=== PATIENT | female | born 1950 | race Caucasian/White ===

== ENCOUNTER → 2020-05-26 10:03 | Outpatient (CLI) | payer MEDICARE, BC, SELFPAY ==
[2020-05-28 18:36] LABS: COVID19 Sendout Not Detected (Not Detected)
== END ==
PROVIDERS: Visit Provider Physician Assistant
DX: Z11.59 Encounter for screening for other viral diseases (principal)
CPT/HCPCS: 87635

== ENCOUNTER 2020-05-29 11:28 | Day surgery (SDC) | payer MEDICARE, BC, SELFPAY ==
--- NOTE | 2020-05-29 | PATH_ITS ---
[facility] Accession Number: [id number] . 01 Material submitted: . colon - CECAL POLYP . 02 Diagnosis: Cecum, Polyp: Sessile serrated adenoma. V 05/31/2020 1242 Local . 02 Electronically signed: . Daniel Pyle MD, PhD, Pathologist NPI- [id number] . 01 Gross description: . Received in formalin, labeled cecal polyp, are four salomon-pink fragments of soft tissue measuring 1.0 x 1.0 x 0.2 cm in aggregate. The specimen is entirely submitted in cassette A1. ([id number]) /V 05/30/2020 1043 Local . 02 Pathologist provided ICD-10: D12.0 . 02 CPT . 233493 Performed at: 01 [facility] [address] [id number] MD Manny Craft MD Phone: [phone] Performed at: 02 [facility] [id number] [place] [id number] MD Faith Forrester MD Phone: [phone]
[2020-05-29 12:00] VITALS: BP 123/73; PULSE 78; RESP 16; TEMP 36.5; O2SAT 100; BMI 20.4
[2020-05-29] MEDS: SODIUM CHLORIDE 0.9% 1,000 ML 70 ML IV (12:00)
--- NOTE | 2020-05-29 13:13 | PM.HP.1 ---
History of Present Illness History of Present Illness Date Patient Seen: 05/29/20 Time Patient Seen: 13:13 Chief complaint: SCREENING COLONOSCOPY W/POSS BX Narrative: Patient is a 69 year old female who presented for colonoscopy. History of advanced adenoma in the ascending colon (SSA) 01/13/2017. - Patient History Medical History (Updated 05/29/20 @ 13:16 by Guillermina Bhagat DO) Cataract (Acute) Surgical History S/P thyroidectomy (Acute) Family & Social History Social History: household members spouse Tobacco & Substance use: Smoking Status Never smoker alcohol intake current alcohol intake frequency 0-2 drinks per day Substance Use Type does not use Meds Home Medications and Allergies Home Medications Medication Instructions Recorded Confirmed Type brinzolamide [Azopt] 1 drp EYE-LEFT BID 05/29/20 05/29/20 History cholecalciferol (vitamin D3) 50 mcg PO DAILY 05/29/20 05/29/20 History [Vitamin D3] levothyroxine 1 mcg PO DAILY 05/29/20 05/29/20 History Allergies Allergy/AdvReac Type Severity Reaction Status Date / Time amoxicillin AdvReac ITCHING Verified 05/29/20 11:44 Review of Systems Review of Systems ROS: Yes All systems reviewed with the patient and are negative except as otherwise documented Exam Vital Signs (past 8 hours): - 05/29/20 12:00 Temperature 97.7 F Pulse Rate 78 Respiratory Rate 16 Blood Pressure 123/73 Pulse Oximetry 100 Oxygen Delivery Method Room Air Const General: cooperative, healthy appearing, comfortable, well developed and well groomed Nutritional Appearance: average body habitus [facility] Head: normocephalic and atraumatic Resp Effort & Inspection: normal respiratory effort, able to speak in complete sentences and abnormal respiratory pattern Auscultation: clear to auscultation bilaterally Cardio Rate: regular rate Rhythm: regular rhythm Heart Sounds: S1 normal and S2 normal GI Palpation: soft Auscultation: normal bowel sounds Neuro Cognition: normal cognition Speech: speech normal Extrem Right lower extremity: no edema Left lower extremity: no edema Assessment & Plan Assessment and plan (1) History of colon polyps: Problem details: 1. History of colon polyps - Advanced adenoma in the ascending colon - Colonoscopy today, further recommendations to follow Status: Acute
[2020-05-29] MEDS: ONDANSETRON 4 MG/2 ML INJ IV (14:08)
[2020-05-29] MEDS: MIDAZOLAM 5 MG/5 ML VIAL IV (14:15)
[2020-05-29] MEDS: fentaNYL 250 MCG/5 ML INJ IV (14:18)
[2020-05-29 14:42] VITALS: BP 117/6; PULSE 88; RESP 13; TEMP 36.1; O2SAT 99
--- NOTE | 2020-05-29 14:43 | PM.OP.ENDO ---
Operative Date/Time/Diagnoses Date of procedure: 05/29/20 Time of procedure: 14:10 Procedure Notes Procedure in detail: Surgeon: Guillermina Bhagat DO Procedure: Colonoscopy with polypectomy Preoperative diagnosis: 1. Personal history of advanced adenoma (sessile serrated adenoma) 01/13/2017 2. Diverticulosis Postoperative diagnosis: 1. Cecal polyp 7 mm -resected and retrieved 2. Sigmoid and descending colon diverticulosis 3. Grade 1 mild internal hemorrhoids Medications: Conscious sedation using 5 mg IV of Midazolam and 125 mcg IV of Fentanyl, 4mg Zofran Preanesthesia Assessment An H and P was performed/updated and the Px?s ASA class is 2. The procedure was discussed in detail with the patient. The potential risks and complications including infection, bleeding, missed lesions, perforation, need for surgery in case of perforation, prolonged hospital stay, and were explained. A brief question and answer period was allotted and once all questions were answered, informed consent was obtained. The patient was brought back to the procedure room and placed on standard monitoring. The patient?s vital signs were monitored continuously throughout the entire procedure. Prior to starting, a timeout was performed to confirm the patient?s identity, allergies, medications, and procedure. Procedure in detail The patient was placed in left lateral decubitus position and once adequate sedation was obtained a IVANNA was performed. The digital rectal examination did not reveal any palpable lesions. The tip of the colonoscope was placed in the anal canal and advanced without difficulty all the way to the cecum which was identified by the appendiceal orifice and the ileocecal valve. Careful examination of all sweet of the colon was performed with irrigation of any residual stool. The patient tolerated the procedure well and will be brought back to the recovery area to be discharged once criteria are met. The prep was judged to be good/excellent and adequate to identify polyps less than 5 mm. The withdrawal time was 9min. The total physician intraservice time was 25min. Complications There were no complications and estimated blood loss was minimal. Recommendations: Resume previous diet Continue outPx medications Follow up pathology results Repeat colonoscopy will be determined after pathology results are reviewed An emergency contact number was given to the patient for any complications related to the procedure
[2020-05-29 14:47] VITALS: BP 115/68; PULSE 90; RESP 15; O2SAT 100
[2020-05-29 14:48] VITALS: BP 126/64; PULSE 80; RESP 14; O2SAT 100
--- NOTE | 2020-05-29 14:52 | SUR.PHASEI ---
awake and oriented, comfortable and talkative. Tolerating PO well. VSS.
[2020-05-29 14:57] VITALS: BP 121/67; PULSE 74; RESP 16; TEMP 37.1; O2SAT 98
== END 2020-05-29 15:13 | disposition home or self-care (01) ==
PROVIDERS: Family Provider Internal Medicine; PCP Internal Medicine; Referring Provider Internal Medicine; Visit Provider Student in an Organized Health Care Education/Training Program
PROC: 0DJD8ZZ Inspection of Lower Intestinal Tract, Via Natural or Artificial Opening Endoscopic (ICD-10-PCS; CPT 45378; principal; 2020-05-29 13:00)
DX: Z12.11 Encounter for screening for malignant neoplasm of colon (principal); Z86.010 Personal history of colon polyps; K57.30 Diverticulosis of large intestine without perforation or abscess without bleeding; K64.0 First degree hemorrhoids; D12.0 Benign neoplasm of cecum
CPT/HCPCS: 45380; J2250; J2405; J3010

== ENCOUNTER → 2021-08-20 14:01 | Outpatient (CLI) | payer MEDICARE, BC, SELFPAY ==
--- NOTE | 2021-08-20 14:05 | DI.CT.S_ITS ---
PROCEDURE: CT SOFT TISSUE NECK WO CON INDICATIONS: PAROTID REGION MASS TECHNIQUE: Non-contrast 3.0 mm axial sections acquired from the sella to the aortic arch. Additional oblique axial 3.0 mm sections acquired through the pharynx. 3 mm thick coronal and sagittal reformats were generated. For radiation dose reduction, the following was used: automated exposure control. COMPARISON: None. FINDINGS: Image quality: Excellent. Lymph nodes: No enlarged lymph nodes seen throughout the neck. Vessels: Non-opacified vessels appear normal in caliber. Neck spaces: The oropharynx, nasopharynx, and pharynx demonstrate no mucosal lesions. The vocal cords, false vocal cords, pyriform sinuses, epiglottis, vallecula, and tongue base all appear normal. Extramucosal spaces appear unremarkable. Glands: The parotid and submandibular glands appear normal, without stones. Thyroid gland unremarkable . Miscellaneous: Visualized brain and orbits appear normal. Lung apices appear clear. Superficial soft tissues appear normal. BB marker is positioned over the normal appearing right masseter muscle. Multilevel degenerative disc disease and arthropathy noted in the cervical spine. Lack of IV contrast limits assessment of solid and vascular structures, particularly for neoplasm. IMPRESSION: 1. No noncontrast evidence of mass lesion. 2. Right-sided BB marker is positioned over the normal appearing master muscle Approved by: Juanjose Esteban M.D. on 08/20/2021 at 17:19
== END ==
PROVIDERS: Family Provider Internal Medicine; PCP Internal Medicine; Referring Provider Otolaryngology Facial Plastic Surgery; Visit Provider Otolaryngology Facial Plastic Surgery
DX: C73 Malignant neoplasm of thyroid gland (principal); K11.9 Disease of salivary gland, unspecified; Z87.19 Personal history of other diseases of the digestive system
CPT/HCPCS: 70490